=== PATIENT | male | born 2005 | race Caucasian/White ===

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

== ENCOUNTER 2025-07-08 09:44 | Outpatient (CLI) | payer OTHER, SELFPAY ==
--- OUTSIDE RECORDS SUMMARY | 2025-07-08 10:19 | XMS_ITS | Patient Health Record ---
Author Organization [facility] [employer] [facility] Address [address] [place] [address] Care Team Providers Care Public Health Nutritionist Name Role Phone Eliezer Menchaca Unavailable [phone] Reason For Referral No Information Medications Medication SIG (Take, Route, Frequency, Duration) Notes Start Date End Date Status Venlafaxine HCl ER 37.5 MG Capsule Extended Release 24 Hour Oral 06/11/2023 Active Venlafaxine HCl ER 75 MG Capsule Extended Release 24 Hour Oral 06/11/2023 Active Social History Social History Additional Details Category Social Info Options Details Migrated Social History Migrated Social History Alcohol Intake: Occasional 06/11/2023,Tobacco Years: Not indicated 06/11/2023 Plan Of Treatment No Information Insurance Providers Payer Name Payer Address Payer Phone Subscriber Number Group Number Insured Name Patient Relationship to Insured Coverage Start Date Coverage End Date [employer] [address] [place] [phone] [id number] S[place] DE [place] Child - Insured has Financial Responsibility Medical (General) History Surgical History Surgery Date(Month/Year) Any surgical history 10/10/2021
--- OUTSIDE RECORDS SUMMARY | 2025-07-08 10:19 | XMS_ITS | Clinical Summary ---
Author Organization [facility] Address [address] [place] [address] Care Team Providers Care Circular Knitter Name Role Phone Pattie Reynoso MD Primary Care Provider [phone] Source Comments [facility],non-owned Affiliates and Associated Physician Practices is amultiple site organization consisting of ambulatory clinics and hospital sitesin [place], [place] and [place]. This disclosure is being madepursuant to the Care Everywhere program and may not contain all information available regarding this patient. Last updated 18.[facility] [employer] Allergies No known active allergies Medications * Be aware that medications may not be up to date on this document. Alwaysverify current medications with the patient. acetaminophen (TYLENOL) 500 MG tablet Take 250 mg by mouth every 4 hours as needed for Fever or Pain Maximum allowable Acetaminophen amount = 4 Grams (4000 mg) / 24 hours. Active calcitriol (ROCALTROL) 0.25 MCG capsule 0 Active venlafaxine (EFFEXOR) 37.5 MG tablet Take 37.5 mg by mouth once daily Active diazePAM (VALIUM) 5 MG tablet Take 1 (one) tablet by mouth 3 times daily 30 tablet 2 Active docusate sodium (COLACE) 100 MG capsule Take 1 (one) capsule by mouth once daily 30 capsule 2 Active gabapentin (NEURONTIN) 300 MG capsule Take 1 (one) capsule by mouth every 8 hours 30 capsule 2 Active polyethylene glycol 3350 (MIRALAX) 17 g packet Take 17 (seventeen) g by mouth once daily 30 packet 2 Active Active Problems Patient Care Coordination No te Formatting of this note migh t be different from the original. Do you have any cultural preferences or concerns? Yes 10/29/21 Problem Noted Date Diagnosed Date Nephrolithiasis 10/29/2021 Assessment & Plan (11/30/2021 11:52 AM CDT): A&P -history of bilateral nephrolithiasis with a right ureteral stone status post cystoscopy, right RGPG, ureteroscopy, laser lithotripsy, and stone extraction. His ureteral stent was removed in the office at his last visit and he has no LUT symptoms, gross hematuria, or flank pain. Stone analysis consistent with calcium oxalate. RBUS today with no nephrolithiasis on the right and normal bladder, with left lower pole stone, questionably intra-parenchymal (read as 8 mm on US, but only [address] less than 2 months ago, so the actual size of the stone may not be accurate on the US). Discussed reasons to call vs trip to ED if stone starts to pass. Possible that this may not pass for some time, especially if intra-parenchymal. Patient has history of hematuria and proteinuria, and has been seen by Nephrology (Dr. Ruff) less than 2 years ago for this, with completion of a 24 hour urine collection. Continue increased water consumption. Follow-up with Dr. Ruff. Mom will reach out to Nephrology office regarding his calcitriol, labs, and 24 hour urine collection. Call for recurrent flank pain; ED for severe pain or intractable N/V, or symptoms with fever. Recommendation for repeat RBUS in 6 months for follow-up of left nephrolithiasis, with Nephrology or . Assessment & Plan (10/29/2021 11:00 AM FINISHER POLISHER): A&P - history of bilateral nephrolithiasis with a right ureteral stone status post cystoscopy, right RGPG, ureteroscopy, laser lithotripsy, and stone extraction. His ureteral stent was removed in the office today, which he tolerated well. Overall, symptoms are improving significantly. Noted that stone was sent for pathology only and not for stone analysis, so pathology lab contacted and as they still have the specimen, they will send out the stone for analysis now (order placed). Stone analysis pending. Patient has history of hematuria and proteinuria, and has been seen by Nephrology (Dr. Ruff) less than 2 years ago for this, with completion of a 24 hour urine collection. Stop Pyridium, Ditropan, Flomax. Continue increased water consumption. Return 4-6 weeks with US and office visit. Follow-up with Dr. Ruff. Mom will reach out to Nephrology office regarding his calcitriol. Call for consistent flank pain; ED for severe pain or intractable N/V, or symptoms with fever. 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 Questions solicited and answered. Patient/family voiced understanding to info/instructions given. 2. The diagnosis and findings were explained to the patient, questions answered. 3. Bracing: No 4. Medications Prescribed: none 5. Activity Restrictions: none 6. Follow up: in 1 year(s). scoliosis PA and lateral X-rays Assessment & Plan (10/22/2021 12:03 PM FINISHER POLISHER): ASSESSMENT: 15 year old male now 2 weeks s/p T4-L3 PISF, having pain control issues but improving PLAN: 1. Questions solicited and answered. 2. Continue local wound care over incision 3. Medications Prescribed: none at this visit 4. Activity Restrictions: no PE, no team sports and no collision sports 5. Weightbearing status: No Restrictions 6. Follow up: in 4 week(s) with X-rays Assessment & Plan (10/01/2021 5:51 PM FINISHER POLISHER): PLAN: SURGICAL DISCUSSION he is accompanied by his mother. Our preoperative discussion began with a definition of kyphosis. We discussed her previous treatments which included observation and physical therapy. Carlee currently has a curve that measures T8-12 98(78) degrees: The types of kyphosis are: Congenital kyphosis is present at when the spine does not form fully correctly before . The kyphosis may worsen as the child grows. If there is significant progression and imbalance, surgery may be indicated. Postural kyphosis is due to poor posture. It is more common in girls. It often shows up in teens. If not self-corrected by s tanding up straight, it can get to a point where physical therapy or bracing is needed to correct it. It does not usually lead to other problems later in life. Surgery is usually not indicated. Scheuermann s kyphosis occurs when the spinal bones grow in an abnormal, wedged fashion. This type tends to run in families. It often appears in the teen years. It can continue to get worse as the child grows. Treatments can include physical therapy, medication, bracing and/or surgery. Surgery is indicated when surgery is greater than 80 degrees with failure of non-operative care. Other causes are post-radiation for a tumor, post-traumatic and post-procedure (secondary to another spinal surgery) We discussed the type of kyphosis Carlee has is Scheuermann s kyphosis . We discussed the natural history of Scheuermann s kyphosis . Surgery is recommended for people with curves usually greater than 80 degrees and/or who are at high risk of continued worsening even after they are finished growing. Curves that grow very large may cause pain, limit certain body functions and cause difficulty or discomfort in breathing. It is known that curves of this magnitude continue to progress at a rate of progression even after skeletal maturity. We usually recommend doing it when the patients are younger because the healing potential is better and the risks of major complications are lower. They were given the treatment alternatives. These alternatives include observation, physical therapy and bracing. The outcomes of each have been discussed. There procedure I have recommended is a posterior spinal fusion with segmental instrumentation and allograft bone graft. We also recommend posterior column osteotomies and discussed the possibility of performing more extensive surgery including a 3 column osteotomy if necessary. We discussed the procedure in depth. We discussed the risk of the procedure, which includes bleeding, infection, neurovascular injury, failure of procedure, failure of hardware, nonunion, paralysis, nerve root injury, pneumothorax, superior mesenteric artery syndrome, deep venous thrombosis, bowel and bladder dysfunction, prolonged hospital stay and . We discussed that with kyphosis surgery the risk of neurologic injury is greater than with other spine deformity surgery. Carlee would be in the operating room anywhere from 4-8 hours, blood loss would be around 500-700 cc, but he may require a transfusion. The risks of transfusion were discussed. The expected post operative course was discussed. he will most likely be admitted to the transitional care unit. Carlee will be placed into the rapid discharge protocol as long as there are no complications. After surgery, Carlee will be able to begin a clear diet, he will be placed on a ENGINEERING DOCUMENT CONTROL CLERK, and have a venegas catheter and arterial line in place. On the morning of postoperative day number one, Carlee's diet will be advanced to as tolerated and he will be sat up in a chair to eat breakfast. In the afternoom, he will receive physical therapy. They will initiate standing and walking. The ENGINEERING DOCUMENT CONTROL CLERK will be discontinued and oral medication will be started. Once Carlee passed PT, is able to eat, and is off all IV pain medication and on oral medication, they will be allowed to be discharged to home. The expected hospital stay will be between 2-3 days. We discussed if a complication should occur, we would be taken care of appropriately, and that he would not be discharged until he was stable enough for discharged. We discussed his postoperatively he will not be in a brace. The first follow up is in 2 weeks via telemedicine, mychart, or e-mail with a picture of the incision to confirm it is healed and has no signs of infection and then in 3 months for a repeat xray. Carlee will be allowed to return swimming in a pool at 2 weeks and lakes, streams, or oceans in 3 weeks, to school in 3-6 weeks, to contact sports in 6 months. PRE OP NEEDS AND INSTRUCTIONS Prior to surgery clearance needed: None Prior to surgery preoperative studies needed: none Preop bowel prep: Carlee was instructed to start MiraLAX 1 week prior to surgery and to take one Dulcolax 2 days prior to surgery. Preop cleaning: Carlee was instructed to shower the night before surgery with Hibiclens, if they are not allergic. SURGICAL PLAN History of seizure: no Neuromonitoring: Yes SSEP: Yes MEP: Yes EMG: Yes Implants: K2M noe with rail Fusion levels: T4-L3 with posterior column osteotomies possible limited PSO Graft: locallocal autograft and allograft ([employer]) Synthetic bone graft or BMP WILL NOT BE UTILIZED IHoracio MD, spent greater than 30 minutes with Carlee and his family and reviewing the images and other studies. I spent and greater than 50% of the time was spent on counseling the family about the diagnosis and treatment plan. Assessment & Plan (08/06/2021 6:11 PM FINISHER POLISHER): PLAN: 1. Questions solicited and answered. Patient/family voiced understanding to info/instructions given. 2. The diagnosis and findings were explained to the patient, questions answered. 3. We discussed operative and non-operative treatment. We discussed risks and benefits. 4. Bracing: No 5. Medications Prescribed: none 6. Activity Restrictions: none 7. Follow up: We will schedule for surgery to correct kyphosis. PSIF with osteotomies. . Assessment & Plan (09/12/2020 10:20 AM FINISHER POLISHER): PLAN: 1. Questions solicited and answered. 2. Patient counseled on surgery today. We discussed risks and benefits of operative and non-operative surgery. Possible outcomes of operative and non-operative treatment. 3. Medications Prescribed: none 4. Activity Restrictions: none 5. Weightbearing status: No Restrictions 6. Follow up: in 1 year(s) with X-rays of the entire spine Hematuria 06/10/2017 Proteinuria 06/10/2017 Urinary urgency 06/10/2017 Family history of lupus erythematosus Family history of Raynaud's phenomenon Family history of cancer in father History of dysuria Immunizations Immunization Administration Dates Next Due Caravan primary monoval ent 12+ yr 0.3mL Purple cap 08/24/2021,01/06/2021,12/16/2020 Family History Medical History Relation Name Comments Cancer - Esophageal Father Anesthesia Reaction Neg Hx Relation Name Status Comments Father Mother Alive Social History Tobacco Use Types Packs/Day Years Used Date Smoking Tobacco: Never Smokeless Tobacco: Never Sex and Gender Information Value Date Recorded Sex Assigned at Not on file Legal Sex Male 2:58 PM CDT Gender Identity Not on file Sexual Orientation Not on file Last Filed Vital Signs Vital Sign Reading Time Taken Comments Blood Pressure 112/59 10/25/2021 4:30 PM FINISHER POLISHER Pulse 68 10/25/2021 4:30 PM FINISHER POLISHER Temperature 36.4 C (97.6 F) 10/25/2021 3:15 PM FINISHER POLISHER Respiratory Rate 20 10/25/2021 4:30 PM FINISHER POLISHER Oxygen Saturation 97% 10/25/2021 4:30 PM FINISHER POLISHER Inhaled Oxygen Concentration 100% 10/10/2021 1 2:24 PM FINISHER POLISHER Weight 82.6 kg (182 lb 1.6 oz) 10/25/2021 10:11 AM FINISHER POLISHER Height 177.8 cm (5' 10) 10/25/2021 10:11 AM FINISHER POLISHER Body Mass Index 26.13 10/25/2021 10:11 AM FINISHER POLISHER Plan of Treatment Health Maintenance Due Date Last Done Comments HIV SCREENING 12/14/2018 HPV VACCINE (1 - Male 3-dose series) 12/14/2018 MENINGOCOCCAL (Group B) VACCINE SHARED DECISION-MAKING (1 of 2 - Standard) 2019 HEPATITIS C SCREENING 12/10/2021 DTAP/TDAP/TD VACCINES (1 - Tdap) 12/14/2022 HEPATITIS B VACCINE (1 of 3 - 19+ 3-dose series) 12/14/2022 DEPRESSION SCREENING 09/08/2024 COVID-19 VACCINE ( season) 2025 08/24/2021, 01/06/2021, 12/16/2020, Additional history exists INFLUENZA VACCINE (#1) 2025 06/06/2020, 2018 ZOSTER VACCINE (1 of 2) 12/14/2053 HIB VACCINE Aged Out No longer eligi ble based on patient's age to complete this topic MENINGOCOCCAL GROUPS A/C/Y/W VACCINE Aged Out No longer eligible based on patient's age to complete this topic PNEUMOCOCCAL VACCINE Aged Out No long er eligible based on patient's age to complete this topic Medical Devices Implanted Type Area Chain Maker Hand Device Identifier Shelf Expiration Date Model / Serial / Lot Kira Spinal Cable System (1 Double Cable, 4 Crimps) Implanted:Qty: 1 on 10/09/2021 by Horacio Adkins MD at [facility] Back 05/04/2026 [id number] / / [id number] Graft Bone Canc 1-4mm 60ml Frzdr Crsh Implanted:Qty: 1 on 10/09/2021 by Horacio Adkins MD at [facility] Back [employer] 11/21/2025 [id number] / / [id number] Scrw Poly Noe 5.5mm X 35mm Implanted:Qty: 6 on 10/09/2021 by Horacio Adkins MD at [facility] Back [employer] [id number] / / Scrw Poly Noe 5.5mm X 40mm Implanted:Qty: 2 on 10/09/2021 by Horacio Adkins MD at [facility] Back [employer] [id number] / / Scrw Noe Poly 6.5mm X 40mm Implanted:Qty: 6 on 10/09/2021 by Horacio Adkins MD at [facility] Back [employer] [id number] / / Scrw One 6.5 X 45mm Gold Implanted:Qty: 2 on 10/09/2021 by Horacio Adkins MD at [facility] Back [employer] [id number] / / Scrw Noe 6.5 X 45mm Implanted:Qty: 2 on 10/09/2021 by Horacio Adkins MD at [facility] Back [employer] [id number] / / Screw 5.5mm 35mm Fndtn Spne Noe Ti Implanted:Qty: 3 on 10/09/2021 by Horacio Adkins MD at [facility] Back [employer] [id number] / / Screw 5.5mm 495mm Str Rail Spne Noe Implanted:Qty: 2 on 10/09/2021 by Horacio Adkins MD at [facility] Back [address] Spine [id number] / / Graft Bone Canc 1-4mm 60ml Frzdr Crsh Implanted:Qty: 1 on 10/09/2021 by Horacio Adkins MD at [facility] Back [employer] 07/27/2025 [id number] / / [id number] Univers Firm Ureteral Stent And Positioner Implanted:Qty: 1 on 10/25/2021 by Krystian Willard MD at [facility] Right: Ureter 05/10/2023 [id number] / / [id number] Description:samples, no rosi ge Explanted Type Area Chain Maker Hand Device Identifier Shelf Expiration Date Model / Serial / Lot Firm Ureteral Stent And Positioner Explanted:Qty: 1 on 10/25/2021 at [facility] Right: Ureter [employer] [id number] / / Description:samples, no rosi ge Insurance COMMERCIAL GENERIC SELF PAY NO INSURANCE Member Subscriber Plan / Payer (Ef fective for All Dates) Name:Carlee De Los Santos Member ID:Not on file Relation to Subscriber:Not on file Name:CARLEE DE LOS SANTOS Subscriber ID:Not on file (Home) Address: [address] [place] [id number] Payer ID:Not on file Group ID:Not on file Type:Self Pay Address: [place], [place] AETNA AETNA AETNA AETNA Advance Directives * Full Code (Latest Code Status on File) Date Activated Date Inactivated Comments 10/09/2021 2:27 PM 10/11/2021 7:02 PM Care Teams Circular Knitter Relationship Specialty Start Date End Date Pattie Renyoso MD PCP - General Internal Medicine 06/03/17
[2025-07-08 10:27] LABS: Add Urine Microscopic? YES; Appearance Urine Clear (Clear); Glucose Urine UA Negative (Negative); Leukocyte Esterase Ur Negative (Negative); Nitrate Urine Negative (Negative); Specific Grav Ur 1.015 (1.010-1.020)
[2025-07-08 10:47] LABS: Alanine Aminotransferase 23 U/L (6-50); Albumin Level 5.1 g/dL (3.5-5.1); Alkaline Phosphatase 85 U/L (38-126); Anion Gap 13 mmol/L (4-12); Aspartate Amino Transferase 28 U/L (17-59); Bilirubin,Total 0.7 mg/dL (0.2-1.3); Blood Urea Nitrogen 14 mg/dL (9-20); Calcium 10.2 mg/dL (8.4-10.2); Carbon Dioxide 29 mmol/L (22-30); Chloride 103 mmol/L (98-107); Estimated Glomerular Filt Rate > 60; Glucose 96 mg/dL (65-110); Osmolality Calculated 300 mOsm/kg (285-295); Potassium 4.5 mmol/L (3.4-5.0); Sodium 145 mmol/L (137-145); Total Protein 7.9 g/dL (6.3-8.2)
== END 2025-07-08 09:45 | disposition home or self-care (01) ==
LOC: CHSLAB 09:47
PROVIDERS: PCP Internal Medicine; Visit Provider Internal Medicine
DX: N39.41 Urge incontinence (principal); N34.2 Other urethritis
CPT/HCPCS: 36415; 80053; 81001; 87491; 87591

== ENCOUNTER 2025-07-11 13:49 | Outpatient (CLI) | payer OTHER, SELFPAY ==
--- NOTE | ~2025-07-11 | US_ITS ---
US retroperitoneal comp 07/11/2025 14:32 Procedure: Realtime transabdominal ultrasound of the kidneys and bladder. Indication: Frequent urinary sensation. Blood in urine. Comparison: Ultrasound dated 10/31/2021 Findings: There is an ill-defined mass at the right renal hilum measuring approximately 4.8 x 3.6 cm, concerning for renal cell carcinoma. No hydronephrosis. No definite renal stones. The right kidney measures 9.9 cm and left kidney measures 10.8 cm. Bladder within normal limits. Impression: 1: Possible right renal hilar mass measuring 4.[address] or MRI with and without contrast recommended for further characterization. Findings suspicious for renal cell carcinoma. Reviewed, dictated and finalized at location O. MAKER HELPER Impression: 1: Possible right renal hilar mass measuring 4.[address] or MRI with and without contrast recommended for further characterization. Findings s uspicious for renal cell carcinoma.
== END 2025-07-11 13:50 | disposition home or self-care (01) ==
LOC: CHSIMG 13:50
PROVIDERS: PCP Internal Medicine; Visit Provider Internal Medicine
DX: N39.41 Urge incontinence (principal); N34.2 Other urethritis; R93.421 Abnormal radiologic findings on diagnostic imaging of right kidney
CPT/HCPCS: 76770